=== PATIENT | male | born 1955 | race Hispanic/Latino ===

== ENCOUNTER 2023-06-15 19:44 | Emergency (ER) | payer MEDICARE, OTHER | END 2023-06-15 22:25 | disposition home or self-care (01) | LOC: CSHERS 19:44 | DX: M62.838 Other muscle spasm (principal) | CPT/HCPCS: 72125 ==

== ENCOUNTER 2023-07-04 21:53 | Emergency (ER) | payer MEDICARE ==
[2023-07-04] MEDS ORDERED: Dexamethasone 4 mg/ml Vial ONE (22:44)
[2023-07-04] MEDS ORDERED: Acetaminophen 500 MG TAB ONE (22:44)
[2023-07-04 23:18] LABS: SARS-CoV-2 NAA Rapid Test Not Detected (NotDetected)
== END 2023-07-05 | disposition home or self-care (01) ==
LOC: CSHERS 21:53
DX: J06.9 Acute upper respiratory infection, unspecified (principal)
CPT/HCPCS: 99282; J1100